=== PATIENT | male | born 1980 | race Caucasian/White ===

== ENCOUNTER 2020-11-09 11:30 | Emergency (ER) | payer OTHER ==
[~2020-11-09] VITALS: Ht 180.3 cm; Wt 70.0 kg
[2020-11-09] MEDS ORDERED: PERTUSS(ACELL),DIPH,TET VAC/PF 0.5 ML SYRINGE IM. ONE (11:45)
[2020-11-09] MEDS ORDERED: BUPIVACAINE HCL/PF 0.25% 10 ML VIAL SQ ONE (12:15)
[2020-11-09 14:05] VITALS: BP 149/95
== END 2020-11-09 14:21 | disposition home or self-care (01) ==
LOC: EMS 11:33
DX: S41.012A Laceration without foreign body of left shoulder, initial encounter (principal); S11.91XA Laceration without foreign body of unspecified part of neck, initial encounter; F31.9 Bipolar disorder, unspecified; F20.9 Schizophrenia, unspecified; V00.131A Fall from skateboard, initial encounter; Y93.51 Activity, roller skating (inline) and skateboarding; Y92.89 Other specified places as the place of occurrence of the external cause; Y99.8 Other external cause status
CPT/HCPCS: 12007; 73030; 90471; 90715; 99283; J3490